=== PATIENT | male | born 1975 | race Caucasian/White ===

== ENCOUNTER 2017-08-15 11:41 | Emergency (ER) | payer OTHER ==
[2017-08-15] MEDS ORDERED: Tetracaine 0.5% OPTH.SOL 4 ML* 1 DROP BTL RIGHT EYE ONE (12:04)
[2017-08-15] MEDS ORDERED: Fluorescein Sod TOPICAL 0.6* 0.6 MG TEST OPHTHALMIC ONE ×2 (12:04→12:05)
[2017-08-15] MEDS ORDERED: BSS OPTH.SOL* BTL OPHTHALMIC ONE (12:04)
[2017-08-15] MEDS ORDERED: Tetracaine 0.5% OPTH.SOL 4 ML* 1 DROP BTL ONE (12:05)
[2017-08-15] MEDS ORDERED: BSS OPTH.SOL* BTL ONE (12:05)
--- NOTE | 2017-08-15 12:06 | UC ---
Eye Complaint HPI - HPI Summary HPI Summary: patient has had an eyelash in his eye the past two days, he has been attempting to remove it without success. eye is red and swollen, painful, clear tears from the eye. visible black linear object in the lower lid - History of Current Complaint Stated Complaint: RT EYE COMPLAINT Time Seen by Provider: 08/15/17 12:01 Hx Obtained From: Patient Onset/Duration: Sudden Onset, Lasting Days Timing: Constant Severity Initially: Moderate Severity Currently: Severe Location of Injury: Conjunctiva, Eye Lid (upper), Sclera Character: Sharp, Foreign Body Sensation Aggravating Factor(s): Light, Blinking Associated Signs And Symptoms: Positive: Photophobia, Drainage (Clear), Vision Impairment Right, Swelling - Allergies/Home Medications Allergies/Adverse Reactions: Allergies Allergy/AdvReac Type Severity Reaction Status Date / Time MRI CONTRAST Allergy Vomiting Uncoded 08/15/17 12:16 Home Medications: Home Medications Atorvastatin* [Lipitor*] 80 mg PO 1700 08/15/17 [History Confirmed 08/15/17] Cetirizine* [ZyrTEC 10 MG TAB*] 10 mg PO DAILY 08/15/17 [History Confirmed 08/15] Citalopram TAB* [CeleXA TAB*] 40 mg PO DAILY 08/15/17 [History Confirmed ] Levothyroxine TAB* [Synthroid TAB*] 250 mcg PO 0800 08/15/17 [History Confirmed 08/15/17] Mirtazapine TAB* [Remeron TAB*] 30 mg PO BEDTIME 08/15/17 [History Confirmed 03/25] PMH/Surg Hx/FS Hx/Imm Hx Previously Healthy: Yes - Surgical History Surgical History: Yes Surgery Procedure, Year, and Place: SINUS SURGERY, DEVIATED SEPTUM - Family History Known Family History: Positive: Hypertension - Social History Substance Use Type: None Review of Systems Constitutional: Negative Skin: Negative Eyes: Drainage, Eye Redness, Photophobia ENT: Negative Respiratory: Negative Cardiovascular: Negative Gastrointestinal: Negative Genitourinary: Negative Motor: Negative Neurovascular: Negative Musculoskeletal: Negative Neurological: Negative Psychological: Negative Is Patient Immunocompromised?: No All Other Systems Reviewed And Are Negative: Yes Physical Exam Triage Information Reviewed: Yes Appearance: Well-Appearing, Well-Nourished, Pain Distress Vital Signs Reviewed: Yes Eyes: Positive: Conjunctiva Inflamed, Discharge - clear tearing, small black linear object noted in the lower lid, unable to flush or nudge with a qtip ENT Exam: Normal ENT: Positive: Pharynx normal, Pharyngeal erythema Dental Exam: Normal Neck exam: Normal Respiratory Exam: Normal Cardiovascular Exam: Normal Abdominal Exam: Normal Bowel Sounds: Positive: Present Musculoskeletal Exam: Normal Neurological Exam: Normal Psychological Exam: Normal Skin Exam: Normal Eye Complaint Course/Dx - Course Course Of Treatment: hx obtained, exam performed ,meds reviewed, FOreign object visulized, flushed with opthalomic saline heidy. and 2 drops of tetracaine applied. sent to [facility] for eval. - Differential Dx/Diagnosis Differential Diagnosis/HQI/PQRI: Conjunctivitis, Corneal Abrasion, Keratitis, Periorbital Cellulitis, Orbital Cellulitis Provider Diagnoses: foreign body in eye Discharge - Discharge Plan Condition: Stable Disposition: HOME Patient Education Materials: Eye Foreign Body (ED) Referrals: Ada Hernandez MD [Primary Care Provider] - Additional Instructions: 1. follow up with [facility] at this time.
[2017-08-15 12:16] VITALS: BP 110/79
== END 2017-08-15 12:28 | disposition home or self-care (01) ==
LOC: UCCORT 11:41
DX: T15.91XA Foreign body on external eye, part unspecified, right eye, initial encounter (principal); S00.251A Superficial foreign body of right eyelid and periocular area, initial encounter; I10 Essential (primary) hypertension
CPT/HCPCS: 99211; A9270-GY; G0463